=== PATIENT | male | born 1940 | race Caucasian/White ===

== ENCOUNTER 2019-08-28 17:30 | Emergency (ER) | payer OTHER ==
[~2019-08-28] VITALS: Ht 167.6 cm; Wt 70.3 kg
[2019-08-28] MEDS ORDERED: PLAVIX75 MG (17:45)
[2019-08-28] MEDS ORDERED: ASPIR 8181 MG (17:45)
[2019-08-28] MEDS ORDERED: VITAMIN D3400 UNIT (17:45)
[2019-08-28] MEDS ORDERED: PEPCID20 MG (17:46)
[2019-08-28] MEDS ORDERED: COZAAR25 MG (17:46)
[2019-08-28] MEDS ORDERED: LASIX20 MG (17:46)
[2019-08-28] MEDS ORDERED: REVATIO20 MG (17:47)
[2019-08-28] MEDS ORDERED: CARAFATE1 GM (17:47)
[2019-08-28] MEDS ORDERED: MAGNESIUM GLUCO27 MG (17:47)
== END 2019-08-28 22:07 | disposition home or self-care (01) ==
LOC: ER 17:30
DX: K21.9 Gastro-esophageal reflux disease without esophagitis (principal); K29.70 Gastritis, unspecified, without bleeding; R05 Cough; B34.9 Viral infection, unspecified